=== PATIENT | female | born 1950 | race Caucasian/White ===

== ENCOUNTER 2016-11-08 23:14 | Emergency (ER) | payer MEDICARE, OTHER ==
[~2016-11-08] VITALS: Ht 167.6 cm; Wt 67.0 kg
[2016-11-08 23:32] VITALS: BP 91/50; PULSE 91; RESP 16; TEMP 98.4; O2SAT 95
--- NOTE | 2016-11-09 00:27 | PD ---
HPI Chief Complaint: Psychiatric Symptoms Time Seen by Provider: 00:22 Travel History International Travel<30 days: No Contact w/Intl Traveler<30days: No Traveled to known affect area: No History of Present Illness HPI This is a 66-year-old female who presents under Glez act initiated by the Police Department. The patient reports that she has been feeling depressed today. She reports that she is depressed because she doesn't want people worry about her. She admits to drinking "too much" rum tonight. She denies any desire to hurt herself or anyone else. She denies any attempts at suicide. She denies any illicit drug use. She has no medical complaints at this time. PFS Past Medical History Depression: Yes Diminished Hearing: No Implanted Vascular Access Dvce: Yes (right subclavian) ?: Not Menopausal: Yes Ectopic : Yes Ovarian Cysts: Yes Past Surgical History Gynecologic Surgery: Yes (oopherectomy) Hysterectomy: Yes Social History Alcohol Use: Yes Tobacco Use: No (quit yrs ago) Substance Use: No Allergies-Medications (Allergen,Severity, Reaction): Coded Allergies: No Known Allergies (Unverified , 11/08/16) Reported Meds & Prescriptions Reported Meds & Active Scripts Active Active Prescriptions or Reported Medications Unobtainable Review of Systems Except as stated in HPI: all other systems reviewed are Neg Physical Exam Narrative GENERAL: Well-developed well-nourished female in no acute distress SKIN: Warm and dry. HEAD: Atraumatic. Normocephalic. EYES: Pupils equal and round. No scleral icterus. No injection or drainage. ENT: No nasal bleeding or discharge. Mucous membranes pink and moist. NECK: Trachea midline. No JVD. CARDIOVASCULAR: Regular rate and rhythm. No murmur appreciated. RESPIRATORY: No accessory muscle use. Clear to auscultation. Breath sounds equal bilaterally. GASTROINTESTINAL: Abdomen soft, non-tender, nondistended. MUSCULOSKELETAL: No obvious deformities. NEUROLOGICAL: Awake and alert. No obvious cranial nerve deficits. Motor grossly within normal limits. Slurred speech PSYCHIATRIC: Appropriate mood and affect; insight and judgment normal. Data Data Last Documented VS Vital Signs Date Time Temp Pulse Resp B/P Pulse Ox O2 Delivery O2 Flow Rate FiO2 11/08/16 23:32 98.4 91 16 91/50 95 Orders Complete Blood Count With Diff (11/09/16 00:26) Comprehensive Metabolic Panel (11/09/16 00:26) Drug Screen, Random Urine (11/09/16 00:26) Alcohol (Ethanol) (11/09/16 00:26) Salicylates (Aspirin) (11/09/16 00:26) Tylenol (Acetaminophen) (11/09/16 00:26) Psych Screen (11/09/16 00:26) Potassium Chloride (Kcl) (11/09/16 02:30) Labs Laboratory Tests Test 11/09/16 00:20 White Blood Count 5.6 TH/MM3 Red Blood Count 4.04 MIL/MM3 Hemoglobin 14.1 GM/DL Hematocrit 41.2 % Mean Corpuscular Volume 102.0 FL Mean Corpuscular Hemoglobin 35.0 PG Mean Corpuscular Hemoglobin 34.3 % Concent Red Cell Distribution Width 12.2 % Platelet Count 170 TH/MM3 Mean Platelet Volume 9.0 FL Neutrophils (%) (Auto) 39.5 % Lymphocytes (%) (Auto) 45.3 % Monocytes (%) (Auto) 11.0 % Eosinophils (%) (Auto) 3.3 % Basophils (%) (Auto) 0.9 % Neutrophils # (Auto) 2.2 TH/MM3 Lymphocytes # (Auto) 2.6 TH/MM3 Monocytes # (Auto) 0.6 TH/MM3 Eosinophils # (Auto) 0.2 TH/MM3 Basophils # (Auto) 0.1 TH/MM3 CBC Comment DIFF FINAL Differential Comment Sodium Level 146 MEQ/L Potassium Level 3.0 MEQ/L Chloride Level 107 MEQ/L Carbon Dioxide Level 25.5 MEQ/L Anion Gap 14 MEQ/L Blood Urea Nitrogen 5 MG/DL Creatinine 0.67 MG/DL Estimat Glomerular Filtration 88 ML/MIN Rate Random Glucose 94 MG/DL Calcium Level 8.4 MG/DL Total Bilirubin 0.4 MG/DL Aspartate Amino Transf 222 U/L (AST/SGOT) Alanine Aminotransferase 98 U/L (ALT/SGPT) Alkaline Phosphatase 112 U/L Total Protein 6.7 GM/DL Albumin 3.6 GM/DL Acetaminophen Level LESS THAN 2.0 MCG/ML Ethyl Alcohol Level 315 MG/DL [facility] Medical Decision Making Medical Screen Exam Complete: Yes Emergency Medical Condition: Yes Medical Record Reviewed: Yes Differential Diagnosis Substance induced mood disorder, acute psychosis, major depressive disorder, adjustment reaction Narrative Course 66-year-old female presents under Glez act for evaluation of depression. Mental health screening discussed with the patient. Psychiatric screen ordered. Lab work is notable for potassium 3.0. The patient will be given oral potassium chloride. AST 222, and ALT 98, likely secondary to alcohol abuse. Alcohol level is 315. The patient is medically cleared for psychiatric disposition. Diagnosis Primary Impression: Alcohol intoxication Qualified Code: F10.120 - Alcohol intoxication, uncomplicated Additional Impression: Hypokalemia Scripts Unable to Obtain Active Prescriptions or Reported Meds Kvng Martinez Nov 09, 2016 00:27
[2016-11-09 01:11] LABS: AUTOMATED NEUTROPHIL # 2.2 TH/MM3 (1.8-7.7); BASOPHIL # 0.1 TH/MM3 (0-0.2); BASOPHIL % 0.9 % (0.0-2.0); EOSINOPHIL # 0.2 TH/MM3 (0-0.4); EOSINOPHIL % 3.3 % (0.0-4.0); HEMATOCRIT 41.2 % (35.0-46.0); HEMO FLAGS DIFF FINAL; LYMPH % 45.3 % (9.0-44.0); LYMPHOCYTE # 2.6 TH/MM3 (1.0-4.8); MEAN CORPUSCULAR HGB CONC 34.3 % (32.0-36.0); NEUT % 39.5 % (16.0-70.0); PLATELET COUNT 170 TH/MM3 (150-450); RED BLOOD COUNT 4.04 MIL/MM3 (4.00-5.30); RED CELL DISTRIBUTION WIDTH 12.2 % (11.6-17.2); WHITE BLOOD COUNT 5.6 TH/MM3 (4.0-11.0)
[2016-11-09 01:39] LABS: ALT (GPT) 98 U/L (10-53); ANION GAP 14 MEQ/L (5-15); AST (GOT) 222 U/L (15-37); BICARBONATE 25.5 MEQ/L (21.0-32.0); BLOOD UREA NITROGEN 5 MG/DL (7-18); CHLORIDE 107 MEQ/L (98-107); GLOMERULAR FILTRATION RATE 88 ML/MIN (>89); SODIUM (NA) 146 MEQ/L (136-145)
[2016-11-09 01:41] LABS: ACETAMINOPHEN LESS THAN 2.0 MCG/ML (10.0-30.0); ALKALINE PHOSPHATASE 112 U/L (45-117); TOTAL BILIRUBIN ADULT 0.4 MG/DL (0.2-1.0)
[2016-11-09 02:00] VITALS: BP 105/67; PULSE 82; RESP 16; O2SAT 97
[2016-11-09] MEDS ORDERED: POTASSIUM CHLORIDE 20 MEQ CONTROLLED RELEASE TAB PO ONE (02:30)
[2016-11-09 06:28] VITALS: BP 109/65; PULSE 85; RESP 18; TEMP 97.6; O2SAT 97
[2016-11-09 09:55] LABS: BACTERIA, URINE MANY /hpf; BLOOD, URINE SMALL (NEG); COMMENT (UR) CULTURE INDICATED; CULTURE IF INDICATED CULTURE INDICATED; GLUCOSE,URINE NEG (NEG); HYALINE CAST, URINE 42 /lpf (RARE); KETONE, URINE NEG (NEG); MUCUS URINE FEW /lpf (OCC); NITRITE,URINE NEG (NEG); PH, URINE 5.5 (5.0-8.5); RENAL EPITHELIAL CELLS 1 /hpf; SQUAMOUS EPITHELIAL CELL URINE 28 /hpf (0-5); TRANSITIONAL EPI CELLS, URINE 3 /hpf; URINE COLOR YELLOW (YELLW/STRAW)
[2016-11-09 09:58] LABS: AMPHETAMINE, URINE NEG (NEG); BARBITURATES, URINE NEG (NEG); COCAINE, URINE NEG (NEG)
--- NOTE | 2016-11-09 11:27 | PD ---
History of Present Illness Chief Complaint: Psychiatric Symptoms Time Seen by Provider: 11:00 Travel History International Travel<30 Days: No Contact w/Intl Traveler<30days: No Known affected area: No Legal Status Legal Status: Glez Act Glez Act Signed By: Lydia Jacques History of Present Illness: History of Present Illness HPI This is a 66-year-old female with history of bipolar disorder and alcohol abuse who presents under Glez act initiated by the Police Department. As per the BA report " Made suicidal statements in connection with being under the influence of alcohol mixed with her medication". Patient presented to ED with BAL of 315. Patient was monitored in J pod and was allowed to sober up. This morning she is clinically sober. Speech is clear, gait is steady and there are no tremor or no other symptom of withdrawal.There is no kyle or hypomania. No hallucinations, delusions or paranoia. Not significant depressed or anxious. Patient admits to " having a little too much to drink last night". She reports she has had an alcohol abuse problem but has been sober x several years. Last night her significant other was out of town and " I called a cab and went and got a bottle of vodka". She is denying any suicidal or homicidal ideation, intent or plan. As per EMR she has not had any previous contact with [facility] psychiatric department. PFSH Past Medical History Bipolar Disorder: Yes Depression: Yes Dementia: Yes Diminished Hearing: No Implanted Vascular Access Dvce: Yes (right subclavian) ?: Not Menopausal: Yes Ectopic : Yes Ovarian Cysts: Yes Past Surgical History Gynecologic Surgery: Yes (oopherectomy) Hysterectomy: Yes Psychiatric History Psychiatric History Hx Psychiatric Treatment: [facility] [place]. Currently on medication History of Inpatient Treatment: Yes Guns or firearms in home: No Social History 66 year old female from [place]. She is a snow bird. Lives with her friend x 9 years. Retired. worked as a [employer]. Hx Alcohol Use: Yes Hx Tobacco Use: No (quit yrs ago) Hx Substance Use: No Hx of Substance Use Treatment: No Family Psychiatric History None reported Allergies-Medications (Allergen,Severity, Reaction): Coded Allergies: No Known Allergies (Unverified , 11/08/16) Reported Meds & Prescriptions Reported Meds & Active Scripts Active Active Prescriptions or Reported Medications Unobtainable Review of Systems Constitutional: DENIES: Diaphoretic episodes, Fatigue, Fever, Weight gain, Weight loss, Chills, Dizziness, Change in appetite, Night Sweats Endocrine: DENIES: Abnorml menstrual pattern, Heat/cold intolerance, Polydipsia , Polyuria, Polyphagia Eyes: COMPLAINS OF: Vision loss Ears, nose, mouth, throat: COMPLAINS OF: Hearing loss Respiratory: DENIES: Apneas, Cough, Snoring, Wheezing, Hemoptysis, Sputum production, Shortness of breath Cardiovascular: DENIES: Chest pain, Palpitations, Syncope, Dyspnea on Exertion , PND, Lower Extremity Edema, Orthopnea, Claudication Gastrointestinal: DENIES: Abdominal pain, Black stools, Bloody stools, Constipation, Diarrhea, Nausea, Vomiting, Difficulty Swallowing, Anorexia Genitourinary: DENIES: Abnormal vaginal bleeding, Dysmenorrhea, Dyspareunia, Sexual dysfunction, Urinary frequency, Urinary incontinence, Urgency, Hematuria , Dysuria, Nocturia, Vaginal discharge Musculoskeletal: DENIES: Joint pain, Muscle aches, Stiffness, Joint Swelling, Back pain, Neck pain Integumentary: DENIES: Abnormal pigmentation, Pruritus, Rash, Nail changes, Breast masses, Breast skin changes, Nipple discharge Hematologic/lymphatic: DENIES: Bruising, Lymphadenopathy Immunologic/allergic: DENIES: Eczema, Urticaria Neurologic: DENIES: Abnormal gait, Headache, Localized weakness, Paresthesias, Seizures, Speech Problems, Tremor, Poor Balance Psychiatric: DENIES: Anxiety, Confusion, Mood changes, Depression, Hallucinations, Agitation, Suicidal Ideation, Homicidal Ideation, Delusions Exam Alert: Yes [place]: Person (ox4) Mood: Calm Affect: Euthymic Speech: Clear, Logical Eye Contact: Normal Memory Intact: Comment (no impairment) Hallucinations: Other (negative) Delusions: No Suicidal: Ideation (denies any) Homicidal: Ideation (denies any) Insight/Judgement Fair . Not impaired MDM Medical Decision Making Medical Record Reviewed: Yes Assessment/Plan 66 year old female with hx of bipolar disorder and alcohol abuse who is under a BA for suicidal ideation in context of alcohol intoxication. Patient at this time is clinically sober and does not present any acute psychiatric symptoms., no kyle and no suicidal or homicidal ideation. She does not meet criteria for BA and does not require increase in level of care such as an inpatient psychiatric treatment. She is counseled regarding the negative effects of mixing alcohol and medication , importance of continuing to work on her sobriety. Lift BA. Discharge home. Orders Complete Blood Count With Diff (11/09/16 00:26) Comprehensive Metabolic Panel (11/09/16 00:26) Drug Screen, Random Urine (11/09/16 00:26) Alcohol (Ethanol) (11/09/16 00:26) Salicylates (Aspirin) (11/09/16 00:26) Tylenol (Acetaminophen) (11/09/16 00:26) Psych Screen (11/09/16 00:26) Potassium Chloride (Kcl) (11/09/16 02:30) Urinalysis - C+S If Indicated (11/09/16 02:55) Diet Regular Basic (11/09/16 Breakfast) Urine Culture (11/09/16 09:15) Results Vital Signs Date Time Temp Pulse Resp B/P Pulse Ox O2 Delivery O2 Flow Rate FiO2 11/09/16 06:28 97.6 85 18 109/65 97 Room Air 11/09/16 02:00 82 16 105/67 97 Room Air 11/08/16 23:32 98.4 91 16 91/50 95 Laboratory Tests Test 11/09/16 11/09/16 00:20 09:15 White Blood Count 5.6 Red Blood Count 4.04 Hemoglobin 14.1 Hematocrit 41.2 Mean Corpuscular Volume 102.0 Mean Corpuscular Hemoglobin 35.0 Mean Corpuscular Hemoglobin 34.3 Concent Red Cell Distribution Width 12.2 Platelet Count 170 Mean Platelet Volume 9.0 Neutrophils (%) (Auto) 39.5 Lymphocytes (%) (Auto) 45.3 Monocytes (%) (Auto) 11.0 Eosinophils (%) (Auto) 3.3 Basophils (%) (Auto) 0.9 Neutrophils # (Auto) 2.2 Lymphocytes # (Auto) 2.6 Monocytes # (Auto) 0.6 Eosinophils # (Auto) 0.2 Basophils # (Auto) 0.1 CBC Comment DIFF FINAL Differential Comment Sodium Level 146 Potassium Level 3.0 Chloride Level 107 Carbon Dioxide Level 25.5 Anion Gap 14 Blood Urea Nitrogen 5 Creatinine 0.67 Estimat Glomerular Filtration 88 Rate Random Glucose 94 Calcium Level 8.4 Total Bilirubin 0.4 Aspartate Amino Transf 222 (AST/SGOT) Alanine Aminotransferase 98 (ALT/SGPT) Alkaline Phosphatase 112 Total Protein 6.7 Albumin 3.6 Salicylates Level LESS THAN 1.7 Acetaminophen Level LESS THAN 2.0 Ethyl Alcohol Level 315 Urine Color YELLOW Urine Turbidity CLOUDY Urine pH 5.5 Urine Specific [place] 1.015 Urine Protein 30 Urine Glucose (UA) NEG Urine Ketones NEG Urine Occult Blood SMALL Urine Nitrite NEG Urine Bilirubin NEG Urine Urobilinogen 2.0 Urine Leukocyte Esterase LARGE Urine RBC 30 Urine WBC Urine WBC Clumps MANY Urine Squamous Epithelial 28 Cells Urine Transitional Epithelial 3 Cells Urine Renal Epithelial Cells 1 Urine Bacteria MANY Urine Hyaline Casts 42 Urine Mucus FEW Microscopic Urinalysis Comment CULTURE INDICATED Urine Opiates Screen NEG Urine Barbiturates Screen NEG Urine Amphetamines Screen NEG Urine Benzodiazepines Screen NEG Urine Cocaine Screen NEG Urine Cannabinoids Screen NEG Date/Time Procedure Status Source Growth 11/09/16 09:15 Urine Culture Received Urine Random Urine Pending Diagnosis Primary Impression: Alcohol intoxication Additional Impressions: Hypokalemia Bipolar 1 disorder Psychiatrically Cleared: Yes Med/ Other Pt Specific Info: No Change to Meds Prescriptions Unable to Obtain Active Prescriptions or Reported Meds Disposition: 01 DISCHARGE HOME Condition: Stable Problem Qualifiers Primary Impression: Alcohol intoxication Qualified Code: F10.120 - Alcohol intoxication, uncomplicated Tari Noel ARN Nov 09, 2016 11:27
== END 2016-11-09 13:27 | disposition home or self-care (01) ==
LOC: NEPA 23:14 → NEPJ 11-09 13:27
DX: F10.120 Alcohol abuse with intoxication, uncomplicated (principal); Y90.8 Blood alcohol level of 240 mg/100 ml or more; B96.20 Unspecified Escherichia coli [E. coli] as the cause of diseases classified elsewhere; R82.99 Other abnormal findings in urine
CPT/HCPCS: 80053; 80307; 80320; 80329; 81001; 85025; 87077; 87086; 87186; 99284; G0480; G0481

== ENCOUNTER 2017-03-09 09:50 | Emergency (ER) | payer OTHER ==
[~2017-03-09] VITALS: Ht 170.2 cm; Wt 63.8 kg
[2017-03-09 09:55] VITALS: BP 111/75; PULSE 86; RESP 16; TEMP 97.8; O2SAT 95
--- NOTE | 2017-03-09 10:05 | PD ---
HPI Chief Complaint: Musculoskeletal Complaint Time Seen by Provider: 09:59 Travel History International Travel<30 days: No Contact w/Intl Traveler<30days: No Traveled to known affect area: No History of Present Illness HPI 66-year-old female has a complaint of right rib pain. Patient had a mechanical fall 3 days ago, falling and hitting her back and right sided chest on the floor. No head injury, LOC, headache, nausea vomiting. She denies any neck pain. No midline back pain. Patient states to the right posterior lateral aspect of the rib cage. She denies any difficulty breathing, pain with inspiration but has had some pain with movement, coughing and or sneezing. She called her PCP who referred her here for imaging. Pain mild, Worse with movement. PFSH Past Medical History Bipolar Disorder: Yes Depression: Yes Dementia: Yes Diminished Hearing: No Implanted Vascular Access Dvce: Yes (right subclavian) Menopausal: Yes Ectopic : Yes Ovarian Cysts: Yes Past Surgical History Gynecologic Surgery: Yes (oopherectomy) Hysterectomy: Yes Social History Alcohol Use: Yes Tobacco Use: No (quit yrs ago) Substance Use: Yes (ALCOHOLISM) Allergies-Medications (Allergen,Severity, Reaction): Coded Allergies: No Known Allergies (Unverified , 03/09/17) Reported Meds & Prescriptions Reported Meds & Active Scripts Active Reported ["Heart Pill"] ["Seizure Pill"] ["Bipolar Pill"] Ibuprofen 600 Mg Tab 600 Mg PO DAILY PRN Trazodone (Trazodone HCl) 150 Mg Tab 150 Mg PO HS Review of Systems Except as stated in HPI: all other systems reviewed are Neg Physical Exam Narrative GENERAL: Elderly female in no acute distress SKIN: Focused skin assessment warm/dry. HEAD: Atraumatic. Normocephalic. EYES: No scleral icterus. No injection or drainage. ENT: Mucous membranes pink and moist. NECK: Supple without midline tenderness palpation CARDIOVASCULAR: Regular rate and rhythm. RESPIRATORY: No accessory muscle use. Clear to auscultation bilaterally MUSCULOSKELETAL no midline tenderness to palpation of thoracic or lumbar spine. Patient has right sided thoracic tenderness to palpation without ecchymosis, step-offs, subcutaneous emphysema or crepitus. NEUROLOGICAL: Awake and alert. Normal speech. PSYCHIATRIC: Appropriate mood and affect; insight and judgment normal. Data Data Last Documented VS Vital Signs Date Time Temp Pulse Resp B/P Pulse Ox O2 Delivery O2 Flow Rate FiO2 03/09/17 09:55 97.8 86 16 111/75 95 Orders Chest, Single Ap (03/09/17 ) MDM Medical Decision Making Medical Screen Exam Complete: Yes Emergency Medical Condition: Yes Medical Record Reviewed: Yes Differential Diagnosis 66-year-old female here with right posterior lower lateral chest wall pain after mechanical fall 3 days ago. Differential includes contusion, thoracic strain, rib fracture and less likely hemopneumothorax. Narrative Course X-ray of the chest showed no acute abnormalities. Patient reassured and discharged home. Diagnosis Primary Impression: Right-sided chest wall pain Referrals: Primary Care Physician as needed Additional Instructions: Tylenol, Aleve, ibuprofen as needed for pain. X-ray today was negative without evidence of rib fracture. Ice the affected area 20 minutes at a time 3-4 times daily. Med/Other Pt SpecificInfo: No Change to Meds Disposition: 01 DISCHARGE HOME Condition: Stable Yolanda Akbar MD March 09, 2017 10:05
[2017-03-09] MEDS ORDERED: [UNRECOGNIZED DRUG - REMARK] (10:08)
[2017-03-09] MEDS ORDERED: [UNRECOGNIZED DRUG - REMARK] (10:08)
[2017-03-09] MEDS ORDERED: TRAZ150T75 PO (10:08)
[2017-03-09] MEDS ORDERED: IBUP-232 PO (10:08)
[2017-03-09] MEDS ORDERED: [UNRECOGNIZED DRUG - REMARK] (10:08)
--- NOTE | 2017-03-09 10:52 | RADHPO ---
EXAM DATE/TIME: 03/09/2017 10:41 [facility] COMPARISON: No previous studies available for comparison. INDICATIONS : Fell 3 days ago, has right side chest pain MEDICAL HISTORY : Carcinoma, breast. SURGICAL HISTORY : None. ENCOUNTER: Initial ACUITY: 3 days PAIN SCORE: 7/10 LOCATION: Right chest FINDINGS: High riding humeral heads. Right portacatheter tip overlies the SVC. Heart size normal. No consolidat ion or effusion. CONCLUSION: No acute disease. Jef Hernandez MD on March 09, 2017 at 10:50 Board Certified Radiologist. This report was verified electronically.
== END 2017-03-09 11:03 | disposition home or self-care (01) ==
LOC: PHEFT 09:50
DX: R07.89 Other chest pain (principal); F31.9 Bipolar disorder, unspecified; F32.9 Major depressive disorder, single episode, unspecified; F03.90 Unspecified dementia, unspecified severity, without behavioral disturbance, psychotic disturbance, mood disturbance, and anxiety; F10.10 Alcohol abuse, uncomplicated
CPT/HCPCS: 71010; 99283